=== PATIENT | male | born 1950 | race Caucasian/White ===

== ENCOUNTER → 2021-04-09 09:20 | Outpatient (CLI) | payer MEDICARE, SELFPAY ==
[2021-04-09 09:47] LABS: Hematocrit 36.6 % (41-53); Mean Corpuscular HGB Conc 32.9 % (30-36); Mean Corpuscular Hemoglobin 27.2 PG (26-34); Mean Corpuscular Volume 82.5 fL (80-100); Platelet Count 149 X10^3/uL (150-400); Red Blood Cell Count 4.43 X10^6/uL (4.5-5.9); Red Cell Distribution Width 14.8 % (11.6-14.8); White Blood Cell Count 28.2 X10^3/uL (4.5-11.0)
[2021-04-09 09:48] LABS: Add Manual Diff / Slide Review YES
[2021-04-09 10:01] LABS: Alanine Aminotransferase 14 IU/L (<50); Albumin Globulin Ratio 1.4 (1.0-2.8); Alkaline Phosphatase 91 U/L (38-126); Aspartate Aminotransferase 22 IU/L (17-59); BUN Creatinine Ratio 12.4 (6-22); Bilirubin Total 0.7 mg/dL (0.2-1.3); Blood Urea Nitrogen 13 mg/dL (9-20); Carbon Dioxide 30 mmol/L (22-32); Chloride 103 mmol/L (98-107); Estimated Glomerular Filt Rate > 60.0 mL/min (>60); Globulin 2.9 g/dL (1.7-4.1); Glucose 103 mg/dL (80-110); HEMOLYSIS < 15 (0-50); Lactate Dehydrogenase 433 U/L (313-618); Potassium 4.4 mmol/L (3.4-5.1); Sodium 137 mmol/L (137-145); Total Protein 6.9 g/dL (6.3-8.2)
[2021-04-09 10:12] LABS: Neutrophils Absolute Manual 5640 /uL (3000-5900); RBC Morphology Normal Morphology; Total Cells Counted 100
== END ==
PROVIDERS: PCP Family Medicine; Referring Provider Internal Medicine Medical Oncology; Visit Provider Internal Medicine Medical Oncology
DX: C83.10 Mantle cell lymphoma, unspecified site (principal)
CPT/HCPCS: 36415; 80053; 83615; 85007; 85025

== ENCOUNTER → 2023-05-01 12:15 | Outpatient (CLI) | payer OTHER, MEDICARE, SELFPAY ==
--- NOTE | 2023-05-01 | DI.RAD.S_ITS ---
PROCEDURE: XR CHEST 1V INDICATIONS: POST THORACENTSIS TECHNIQUE: One view of the chest was acquired. COMPARISON: Outside Facility, RG, CT THORAX/ABDOMEN/PELVIS WITH CONTRAST, 04/06/2023, 12:11. [facility] [place], PET NECK TO MID THIGH, 02/19/2023, 7:49. Outside Facility, RG, XR CHEST AP PORTABLE, 04/12/2023, 16:37. FINDINGS: Surgical changes and devices: None. Lungs and pleura: Bilateral patchy pulmonary opacities suspicious for atypical pneumonia. No pleural effusions or pneumothorax. Mediastinum: Mediastinal contours appear normal. Heart size is normal. Bones and chest wall: No suspicious bony lesions. Overlying soft tissues appear unremarkable. IMPRESSION: 1. No pneumothorax. 2. Bilateral patchy pulmonary opacities suspicious for atypical pneumonia. Dictated by: Chino Ku M.D. on 05/01/2023 at 13:26 Approved by: Chino Ku M.D. on 05/01/2023 at 13:28
--- NOTE | 2023-05-01 | DI.US.S_ITS ---
PROCEDURE: US THORACENTESIS INDICATIONS: Pleural effusion, not elsewhere classified TECHNIQUE: The indications, alternatives, benefits, risks, and complications of the procedure were explained to the patient. Written informed consent was obtained and placed in the chart. The chest was examined sonographically, and an appropriate site was chosen for thoracentesis. The skin was prepared and draped in the usual sterile fashion, and 1% lidocaine was infiltrated from the skin down through the pleural surface. A 19-gauge catheter-covered needle was then introduced into the pleural space, the catheter was advanced and the needle was withdrawn, and thereafter pleural fluid was aspirated. The catheter was then removed and a dressing was applied. COMPARISON: Outside Facility, RG, CT THORAX/ABDOMEN/PELVIS WITH CONTRAST, 04/06/2023, 12:11. [facility], [place], XR CHEST 1V, 05/01/2023, 13:14. FINDINGS: Access site: Right hemithorax. Needle: One-Step centesis catheter with introducer needle. Fluid volume and description: 1200 mL Fluid sent for diagnostic testing: Yes; per ordering physician. Medications: 1% lidocaine for local anaesthesia. Complications: None; post-procedural chest radiograph is pending to assess for pneumothorax. IMPRESSION: Successful ultrasound-guided diagnostic and therapeutic thoracentesis. Dictated by: Chino Ku M.D. on 05/01/2023 at 15:03 Approved by: Chino Ku M.D. on 05/01/2023 at 15:04
--- NOTE | 2023-05-01 | PATH_ITS ---
Note [facility] Accession Number: [id number] TESTS RESULT FLAG UNITS REF RANGE LAB Clinician Provided Cytology Information No. of containers..01 Other (Miscellaneous) Source: RIGHT PLEURAL EFFUSION DIAGNOSIS: RIGHT PLEURAL EFFUSION, THORACENTESIS. NEGATIVE FOR CARCINOMA. REACTIVE MESOTHELIAL CELLS, IN A BACKGROUND OF MIXED INFLAMMATORY CELLS WITH FEW LYMPHOCYTES, SEE COMMENT. COMMENT: THE PATIENT HAS HISTORY OF MANTLE CELL LYMPHOMA, A LIMITED PANEL OF IMMUNOSTAINS WILL BE PERFORMED TO RULE OUT INVOLVEMENT BY LYMPHOMA (MORPHOLOGICALLY NOT FAVORED OVERALL). RESULTS WILL FOLLOW IN AN ADDENDUM. THIS INTERPRETATION INCLUDES EVALUATION OF A CELL BLOCK. Pathologist ICD10: J90 Signed out by: Lokesh Carias MD, Pathologist NPI- [id number] Performed by: Rojelio Lucero, Flat Finisher ([facility]) Gross description: 90 CC, RED, CLOUDY RECIEVED: IN CYTOLYT WITH BLUE CAP CONTAINER.VO /VDU 05/04/2023 0812 Local FLAG LEGEND: L-Low Normal,H-High Normal,LL-Alert Low,HH-Alert High <-Panic Low,>-Panic High,A-Abnormal,AA-Critical Abnormal Performed at: 01 [facility] [address] [place] [address] [address], [place] [address] Neptali Ortega MD, Performed at: 01 [facility] [address] [place] [address] [address], [place], [place] [id number] MD Neptali Ortega MD Phone: [phone]
== END ==
PROVIDERS: PCP Family Medicine; Referring Provider Internal Medicine; Visit Provider Internal Medicine
DX: C83.17 Mantle cell lymphoma, spleen (principal); J90 Pleural effusion, not elsewhere classified
CPT/HCPCS: 32555; 71045